=== PATIENT | female | born 1955 | race African-American/Black ===

== ENCOUNTER 2024-01-30 11:19 | Inpatient (IN) | payer MEDICARE, OTHER ==
[~2024-01-30] VITALS: Ht 162.6 cm; Wt 54.5 kg
[2024-01-30 11:22] VITALS: O2SAT 97
[2024-01-30 14:38] LABS: BASOPHILS % 0.6 % (0.0-2.0); DIFFERENTIAL COMMENT 0; EOSINOPHILS % 0.2 % (0.0-5.0); HEMATOCRIT. 34.2 % (36.0-48.0); LYMPHOCYTES % 22.1 % (20.0-50.0); MEAN CORPUSCULAR HGB CONC 32.1 g/dL (31.0-37.0); MEAN CORPUSCULAR VOLUME 102.9 fL (81.0-99.0); MEAN PLATELET VOLUME 8.1 fl (7.4-10.4); MONOCYTES % 8.9 % (2.0-8.0); NEUTROPHILS % 68.2 % (40.0-76.0); PLATELET 554 x1000/uL (130-400); RED BLOOD CELL COUNT 3.32 mill/uL (4.2-5.4); RED CELL DISTRIBUTION WIDTH 14.7 % (11.6-14.6); WHITE BLOOD COUNT 15.6 x1000/uL (4.5-11.0)
[2024-01-30 14:39] LABS: POTASSIUM 5.3 mEq/L (3.5-5.1)
[2024-01-30 14:41] LABS: CALCIUM 9.6 mg/dL (8.7-10.4)
[2024-01-30 14:45] LABS: CREATININE 2.2 mg/dL (0.6-1.0)
[2024-01-30] MEDS: PIPERACILLIN/TAZO 3.375G/50ML 50 ML IV ONE (16:13)
[2024-01-30] MEDS: SODIUM CHLORIDE 0.9% 1,000 ML IV ONE (16:13)
[2024-01-30] MEDS: SODIUM CHLORIDE 0.9% 1000ML BAG (SEPSIS BOLUS) IV ONE (16:14)
[2024-01-30 16:17] LABS: POTASSIUM 4.1 mEq/L (3.5-5.1)
[2024-01-30 18:51] LABS: CLARITY URINE TURBID (CLEAR); COLOR URINE DARK YELLOW (YELLOW); GLUCOSE URINE NEGATIVE (NEGATIVE); KETONES URINE TRACE (NEGATIVE); LEUKOCYTE ESTERASE URINE 2+ (NEGATIVE); NITRITE URINE NEGATIVE (NEGATIVE); OCCULT BLOOD URINE NEGATIVE (NEGATIVE); PROTEIN URINE 1+ (NEGATIVE); SPECIFIC GRAVITY URINE 1.024 (1.005-1.030)
[2024-01-30 19:11] LABS: BACTERIA URINE 3+; RBC URINE 0-2 /hpf (0-2); SQUAMOUS EPITHELIAL CELL URINE 2+ /lpf (RARE/1+)
[2024-01-30] MEDS ORDERED: CLONIDINE 0.1MG TABLET PO PRN (19:30)
[2024-01-30] MEDS ORDERED: IPRATROPIUM/ALBUTEROL 0.5-3(2.5)MG/3ML NEB HHN PRN (19:30)
[2024-01-30] MEDS ORDERED: PIPERACILLIN/TAZOBACTAM 3.375 G in DEXTROSE 5% WATER 50 ML IV SCH (19:30)
[2024-01-30] MEDS ORDERED: ACETAMINOPHEN 325MG TABLET PO PRN (19:30)
[2024-01-30 22:00] VITALS: BP 107/72; PULSE 115; RESP 20; TEMP 36.418
[2024-01-30] MEDS: SODIUM CHLORIDE 0.9% 1,000 ML IV SCH (22:20)
[2024-01-30] MEDS: PIPERACILLIN/TAZO 3.375G/50ML IV SCH (22:20)
[2024-01-30] MEDS: MORPHINE SULFATE 2 MG/ML INJ (NOT FOR IM USE) IV PRN (22:29)
[2024-01-31] MEDS: VANCOMYCIN 1.25GM PMX (XELLIA) 250 ML IV NR (02:28)
[2024-01-31 04:00] VITALS: BP_SYST 119; BP_SYST 96; BP_DIAS 58; BP_DIAS 67; PULSE 110; RESP 20; TEMP 36.9474; O2SAT 97
[2024-01-31 06:42] LABS: POTASSIUM 3.7 mEq/L (3.5-5.1)
[2024-01-31 06:44] LABS: CALCIUM 8.6 mg/dL (8.7-10.4)
[2024-01-31 06:49] LABS: BASOPHILS % 0.5 % (0.0-2.0); DIFFERENTIAL COMMENT 0; EOSINOPHILS % 1.4 % (0.0-5.0); HEMATOCRIT. 26.1 % (36.0-48.0); HEMOGLOBIN. 8.4 g/dL (12.0-16.0); LYMPHOCYTES % 26.3 % (20.0-50.0); MEAN CORPUSCULAR HEMOGLOBIN 33.1 pg (28.0-32.0); MEAN CORPUSCULAR HGB CONC 32.3 g/dL (31.0-37.0); MEAN CORPUSCULAR VOLUME 102.6 fL (81.0-99.0); MEAN PLATELET VOLUME 8.2 fl (7.4-10.4); MONOCYTES % 11.3 % (2.0-8.0); NEUTROPHILS % 60.5 % (40.0-76.0); PLATELET 417 x1000/uL (130-400); RED BLOOD CELL COUNT 2.54 mill/uL (4.2-5.4); WHITE BLOOD COUNT 10.8 x1000/uL (4.5-11.0)
[2024-01-31 07:00] LABS: CREATININE 1.5 mg/dL (0.6-1.0)
[2024-01-31 07:16] LABS: HEPATITIS B SURFACE ANTIGEN NEGATIVE (Negative)
[2024-01-31 07:37] LABS: HEPATITIS C AB NON REACTIVE (Neg) (Negative)
[2024-01-31 08:00] VITALS: BP 99/62; PULSE 120; RESP 18; TEMP 36.50292; O2SAT 95
[2024-01-31 12:00] VITALS: BP 109/78; PULSE 104; RESP 18; TEMP 36.78072; O2SAT 97
[2024-01-31 13:45] LABS: CREATININE URINE RANDOM 73.7 mg/dL
[2024-01-31 14:22] LABS: CREATINE KINASE 35 IU/L (34-145); PHOSPHORUS 4.4 mg/dL (2.5-4.9)
[2024-01-31 16:00] VITALS: BP 90/49; PULSE 93; RESP 18; TEMP 36.78072; O2SAT 99
[2024-01-31] MEDS: PNEUMOCOCCAL 23-VAL P-SAC VAC 0.5ML IM ONE (18:07)
[2024-01-31 20:00] VITALS: BP 103/64; PULSE 100; RESP 18; TEMP 36.72516; O2SAT 95
[2024-01-31] MEDS: VANCOMYCIN 500MG/100ML IV SCH (22:24)
[2024-01-31] MEDS: ONDANSETRON HCL 4MG/2ML INJ IV PRN (22:41)
[2024-02-01] VITALS (8 sets, daily range): BP systolic 90–157; BP diastolic 48–108; PULSE 100–141; RESP 17–25; TEMP 36.114–37.28076; O2SAT 94–100
[2024-02-01] MEDS ORDERED: LIDOCAINE HCL 1% 10 MG/ML 10ML VIAL ONE (07:05)
[2024-02-01] MEDS ORDERED: BUPIVACAINE HCL/PF 0.5% (5MG/ML) 10ML ONE (07:05)
[2024-02-01] MEDS ORDERED: POLYMYXIN B SULFATE 500000 UNITS/VIAL ONE (07:05)
[2024-02-01] MEDS ORDERED: FENTANYL CITRATE/PF 50MCG/ML 2ML VIAL ONE ×2 (07:29→08:58)
[2024-02-01] MEDS ORDERED: PROPOFOL 200MG/20ML VIAL IV ONE (07:29)
[2024-02-01] MEDS ORDERED: ROCURONIUM BROMIDE 10MG/ML VIAL 5ML IV ONE ×2 (07:29→08:43)
[2024-02-01 07:30] LABS: BASOPHILS % 0.6 % (0.0-2.0); DIFFERENTIAL COMMENT 0; EOSINOPHILS % 1.2 % (0.0-5.0); HEMATOCRIT. 24.6 % (36.0-48.0); HEMOGLOBIN. 7.9 g/dL (12.0-16.0); LYMPHOCYTES % 21.6 % (20.0-50.0); MEAN CORPUSCULAR HEMOGLOBIN 33.3 pg (28.0-32.0); MEAN PLATELET VOLUME 8.5 fl (7.4-10.4); MONOCYTES % 10.5 % (2.0-8.0); NEUTROPHILS % 66.1 % (40.0-76.0); PLATELET 374 x1000/uL (130-400); RED BLOOD CELL COUNT 2.37 mill/uL (4.2-5.4); RED CELL DISTRIBUTION WIDTH 13.9 % (11.6-14.6); WHITE BLOOD COUNT 8.3 x1000/uL (4.5-11.0)
[2024-02-01] MEDS ORDERED: MIDAZOLAM HCL 2 MG/2 ML VIAL ONE (07:30)
[2024-02-01 07:41] LABS: CHLORIDE 106 mEq/L (98-107); POTASSIUM 3.8 mEq/L (3.5-5.1); SODIUM 137 mEq/L (136-145)
[2024-02-01 07:42] LABS: CARBON DIOXIDE 23 mEq/L (21-32)
[2024-02-01 07:43] LABS: CALCIUM 9.1 mg/dL (8.7-10.4)
[2024-02-01 07:48] LABS: CREATININE 0.9 mg/dL (0.6-1.0); GLUCOSE 91 mg/dL (70-105); UREA NITROGEN BLOOD 17 mg/dL (9-23)
[2024-02-01] MEDS ORDERED: PHENYLEPHRINE HCL 10MG/ML 1ML IV ONE (08:00)
[2024-02-01] MEDS ORDERED: ESMOLOL HCL 10MG/ML 10ML VIAL IV ONE (08:11)
[2024-02-01] MEDS ORDERED: FENTANYL CITRATE/PF 50MCG/ML 2ML VIAL IV PRN (08:30)
[2024-02-01] MEDS ORDERED: ONDANSETRON HCL 4MG/2ML INJ IV PRN (08:30)
[2024-02-01] MEDS ORDERED: SUGAMMADEX SODIUM 200MG/2ML VIAL IV ONE (08:49)
[2024-02-01] MEDS ORDERED: ALBUMIN HUMAN 12.5G/250ML (5%) IV ONE (08:49)
[2024-02-01] MEDS: HYDROMORPHONE HCL/PF 1MG/ML INJ IV PRN (10:23)
[2024-02-01] MEDS ORDERED: ALLO300T2 PO (10:24)
[2024-02-01] MEDS ORDERED: COLC0.6C3 MT (10:24)
[2024-02-01] MEDS ORDERED: ASPI-1497 PO (10:24)
[2024-02-01] MEDS ORDERED: PANT40TA51 PO (10:24)
[2024-02-01] MEDS ORDERED: NIFE90TA60 PO (10:24)
[2024-02-01] MEDS ORDERED: DILT-26 PO (10:24)
[2024-02-01] MEDS ORDERED: METO-539 PO (10:24)
[2024-02-01] MEDS ORDERED: MELO-104 PO (10:24)
[2024-02-01] MEDS ORDERED: FERR325T6 PO (10:24)
[2024-02-01] MEDS ORDERED: TRAZ-251 PO (10:24)
[2024-02-01] MEDS ORDERED: POLY15DR31 OP (10:24)
[2024-02-01] MEDS ORDERED: NALOXONE HCL 0.4MG/ML VIAL IV PRN (10:30)
[2024-02-01] MEDS: ACETAMINOPHEN 1000MG/100ML 100 ML IV NR (10:49)
[2024-02-01] MEDS: VANCOMYCIN 750MG/150ML (BAXTER) IV SCH (12:25)
[2024-02-01] MEDS ORDERED: SODIUM CHLORIDE 0.9% 1000ML BAG (SEPSIS BOLUS) IV ONE (12:45)
[2024-02-01] MEDS: SODIUM CHLORIDE 0.9% 1,000 ML IV SCH (14:25)
[2024-02-01] MEDS: MAGNESIUM 2 G PREMIX 50 ML IV NR (14:26)
[2024-02-01] MEDS: HYDROCODONE/ACETAMINOPHEN 5/325MG TABLET PO PRN (15:37)
[2024-02-01 16:18] LABS: HEMATOCRIT 24.6 % (36.0-48.0); HEMOGLOBIN 7.8 g/dL (12.0-16.0); MEAN CORPUSCULAR HEMOGLOBIN 32.9 pg (28.0-32.0); MEAN CORPUSCULAR HGB CONC 31.7 g/dL (31.0-37.0); PLATELET 342 x1000/uL (130-400); RED BLOOD CELL COUNT 2.37 mill/uL (4.2-5.4); WHITE BLOOD COUNT 11.4 x1000/uL (4.5-11.0)
[2024-02-01] MEDS: KETOROLAC 15MG/ML VIAL IV SCH (17:04)
[2024-02-01 17:32] LABS: T4 FREE 1.56 ng/dL (0.89-1.76)
[2024-02-01 17:33] LABS: THYROID STIMULATING HORMONE 0.77 uIU/mL (0.55-4.78)
[2024-02-01 18:14] LABS: TROPONIN I HIGH SENSITIVITY 17 ng/L (3.0-34)
[2024-02-01] MEDS: METOPROLOL TARTRATE 50MG TABLET PO SCH (20:25)
[2024-02-01] MEDS: HYDROCODONE/ACETAMINOPHEN 10/325MG TABLET PO PRN (20:26)
[2024-02-02] VITALS (9 sets, daily range): BP systolic 115–151; BP diastolic 84–99; PULSE 87–128; RESP 14–26; TEMP 36.22512–37.00296; O2SAT 86–99
[2024-02-02] MEDS: HYDROCODONE/ACETAMINOPHEN 5/325MG TABLET PO PRN (04:45)
[2024-02-02] MEDS: DILTIAZEM HCL 120MG CAPSULE ER 24HR PO SCH (08:13)
[2024-02-02] MEDS: ENOXAPARIN 40MG/0.4ML SYR SUBCUT SCH (08:14)
[2024-02-02 08:56] LABS: HEMATOCRIT. 25.6 % (36.0-48.0); HEMOGLOBIN. 8.2 g/dL (12.0-16.0); MEAN CORPUSCULAR HEMOGLOBIN 33.2 pg (28.0-32.0); MEAN CORPUSCULAR HGB CONC 32.1 g/dL (31.0-37.0); MEAN CORPUSCULAR VOLUME 103.6 fL (81.0-99.0); MEAN PLATELET VOLUME 8.3 fl (7.4-10.4); PLATELET 340 x1000/uL (130-400); RED BLOOD CELL COUNT 2.47 mill/uL (4.2-5.4); WHITE BLOOD COUNT 9.6 x1000/uL (4.5-11.0)
[2024-02-02 08:57] LABS: DIFFERENTIAL COMMENT 1
[2024-02-02 09:05] LABS: CHLORIDE 107 mEq/L (98-107); POTASSIUM 3.9 mEq/L (3.5-5.1); SODIUM 137 mEq/L (136-145)
[2024-02-02 09:06] LABS: CALCIUM 9.6 mg/dL (8.7-10.4); CARBON DIOXIDE 28 mEq/L (21-32)
[2024-02-02 09:11] LABS: CREATININE 0.9 mg/dL (0.6-1.0); GLUCOSE 98 mg/dL (70-105); UREA NITROGEN BLOOD 10 mg/dL (9-23)
[2024-02-02 11:38] LABS: PLATELET ESTIMATE NORMAL
[2024-02-02] MEDS: METOCLOPRAMIDE HCL 10MG/2ML VIAL IV PRN (15:19)
[2024-02-03] VITALS (12 sets, daily range): BP systolic 97–127; BP diastolic 68–89; PULSE 90–120; RESP 14–20; TEMP 36.28068–37.55856; O2SAT 91–100
[2024-02-03] MEDS: DIPHENHYDRAMINE 50MG/ML VIAL IV PRN (00:14)
[2024-02-03 04:10] LABS: CANCER ANTIGEN 125 28.6 U/mL (0.0-38.1); CARCINOEMBRYONIC AG - SEND OUT 2.2 ng/mL (0.0-4.7)
[2024-02-03 17:51] LABS: BASOPHILS % 0.6 % (0.0-2.0); DIFFERENTIAL COMMENT 0; EOSINOPHILS % 3.9 % (0.0-5.0); HEMATOCRIT. 25.5 % (36.0-48.0); LYMPHOCYTES % 30.3 % (20.0-50.0); MEAN CORPUSCULAR HEMOGLOBIN 33.1 pg (28.0-32.0); MEAN CORPUSCULAR HGB CONC 31.6 g/dL (31.0-37.0); MEAN CORPUSCULAR VOLUME 104.8 fL (81.0-99.0); MEAN PLATELET VOLUME 8.7 fl (7.4-10.4); MONOCYTES % 13.3 % (2.0-8.0); NEUTROPHILS % 51.9 % (40.0-76.0); PLATELET 333 x1000/uL (130-400); RED BLOOD CELL COUNT 2.43 mill/uL (4.2-5.4); RED CELL DISTRIBUTION WIDTH 14.6 % (11.6-14.6); WHITE BLOOD COUNT 6.5 x1000/uL (4.5-11.0)
[2024-02-03 18:02] LABS: CHLORIDE 111 mEq/L (98-107); POTASSIUM 3.9 mEq/L (3.5-5.1); SODIUM 138 mEq/L (136-145)
[2024-02-03 18:03] LABS: CARBON DIOXIDE 23 mEq/L (21-32)
[2024-02-03 18:08] LABS: CREATININE 0.9 mg/dL (0.6-1.0); GLUCOSE 93 mg/dL (70-105); UREA NITROGEN BLOOD 13 mg/dL (9-23)
[2024-02-03] MEDS: HEMORRHOIDAL SUPP PR SCH (22:17)
[2024-02-04] VITALS (12 sets, daily range): BP systolic 104–134; BP diastolic 71–94; PULSE 93–141; RESP 14–27; TEMP 36.83628–37.44744; O2SAT 85–98
[2024-02-04 06:21] LABS: PROTHROMBIN TIME 10.8 sec (9.6-11.0)
[2024-02-04 06:25] LABS: CARBON DIOXIDE 25 mEq/L (21-32); CHLORIDE 108 mEq/L (98-107); POTASSIUM 3.5 mEq/L (3.5-5.1); SODIUM 140 mEq/L (136-145)
[2024-02-04 06:26] LABS: CALCIUM 9.8 mg/dL (8.7-10.4)
[2024-02-04 06:30] LABS: CREATININE 0.8 mg/dL (0.6-1.0); IRON 21 ug/dL (50-170)
[2024-02-04 06:31] LABS: ALANINE AMINOTRANSFERASE 10 IU/L (10-49); GLUCOSE 94 mg/dL (70-105); TOTAL IRON BINDING CAPACITY 213 ug/dl (250-425); UREA NITROGEN BLOOD 14 mg/dL (9-23)
[2024-02-04 06:32] LABS: ASPARTATE AMINOTRANSFERASE 10 IU/L (<34)
[2024-02-04 06:33] LABS: BILIRUBIN DIRECT 0.1 mg/dL (<=3.0); BILIRUBIN TOTAL 0.3 mg/dL (0.1-1.0); PROTEIN TOTAL 6.3 g/dL (6.0-8.3)
[2024-02-04 06:35] LABS: FERRITIN 359 ng/mL (10-291)
[2024-02-04 06:39] LABS: BASOPHILS % 0.3 % (0.0-2.0); DIFFERENTIAL COMMENT 0; FOLIC ACID (FOLATE) SERUM 19.27 ng/mL (>5.38); HEMATOCRIT. 25.9 % (36.0-48.0); HEMOGLOBIN. 8.6 g/dL (12.0-16.0); LYMPHOCYTES % 21.4 % (20.0-50.0); MEAN CORPUSCULAR HEMOGLOBIN 33.8 pg (28.0-32.0); MEAN CORPUSCULAR HGB CONC 33.1 g/dL (31.0-37.0); MEAN CORPUSCULAR VOLUME 101.9 fL (81.0-99.0); MEAN PLATELET VOLUME 8.6 fl (7.4-10.4); MONOCYTES % 10.7 % (2.0-8.0); NEUTROPHILS % 65.6 % (40.0-76.0); PLATELET 337 x1000/uL (130-400); RED BLOOD CELL COUNT 2.55 mill/uL (4.2-5.4); RED CELL DISTRIBUTION WIDTH 13.9 % (11.6-14.6); VITAMIN B12 SERUM 474 pg/mL (211-911); WHITE BLOOD COUNT 9.2 x1000/uL (4.5-11.0)
[2024-02-04] MEDS: POTASSIUM CHLORIDE 20MEQ/PACKET PO NR (12:40)
[2024-02-05] VITALS (7 sets, daily range): BP systolic 84–124; BP diastolic 58–84; PULSE 88–109; RESP 16–17; TEMP 36.114–37.05852; O2SAT 93–97
[2024-02-05 06:08] LABS: BASOPHILS % 0.5 % (0.0-2.0); DIFFERENTIAL COMMENT 0; EOSINOPHILS % 4.6 % (0.0-5.0); HEMATOCRIT. 22.5 % (36.0-48.0); HEMOGLOBIN. 7.2 g/dL (12.0-16.0); LYMPHOCYTES % 34.4 % (20.0-50.0); MEAN CORPUSCULAR HEMOGLOBIN 32.8 pg (28.0-32.0); MEAN CORPUSCULAR VOLUME 102.6 fL (81.0-99.0); MEAN PLATELET VOLUME 8.5 fl (7.4-10.4); MONOCYTES % 13.6 % (2.0-8.0); NEUTROPHILS % 46.9 % (40.0-76.0); PLATELET 344 x1000/uL (130-400); RED BLOOD CELL COUNT 2.19 mill/uL (4.2-5.4); RED CELL DISTRIBUTION WIDTH 13.9 % (11.6-14.6); WHITE BLOOD COUNT 7.3 x1000/uL (4.5-11.0)
[2024-02-05 06:15] LABS: CARBON DIOXIDE 23 mEq/L (21-32); CHLORIDE 112 mEq/L (98-107); SODIUM 141 mEq/L (136-145)
[2024-02-05 06:16] LABS: CALCIUM 8.9 mg/dL (8.7-10.4)
[2024-02-05 06:21] LABS: CREATININE 0.6 mg/dL (0.6-1.0); GLUCOSE 84 mg/dL (70-105); UREA NITROGEN BLOOD 9 mg/dL (9-23)
[2024-02-05 17:40] LABS: HEMATOCRIT 23.1 % (36.0-48.0); HEMOGLOBIN 7.4 g/dL (12.0-16.0)
[2024-02-06] VITALS (9 sets, daily range): BP systolic 98–147; BP diastolic 62–95; PULSE 91–127; RESP 15–30; TEMP 36.16956–36.78072; O2SAT 93–99
[2024-02-06 06:54] LABS: BASOPHILS % 0.8 % (0.0-2.0); DIFFERENTIAL COMMENT 0; EOSINOPHILS % 2.4 % (0.0-5.0); HEMATOCRIT. 24.8 % (36.0-48.0); LYMPHOCYTES % 40.4 % (20.0-50.0); MEAN CORPUSCULAR HEMOGLOBIN 33.3 pg (28.0-32.0); MEAN CORPUSCULAR HGB CONC 32.4 g/dL (31.0-37.0); MEAN CORPUSCULAR VOLUME 102.9 fL (81.0-99.0); MEAN PLATELET VOLUME 8.4 fl (7.4-10.4); MONOCYTES % 7.5 % (2.0-8.0); NEUTROPHILS % 48.9 % (40.0-76.0); PLATELET 353 x1000/uL (130-400); RED BLOOD CELL COUNT 2.41 mill/uL (4.2-5.4); RED CELL DISTRIBUTION WIDTH 14.7 % (11.6-14.6); WHITE BLOOD COUNT 8.8 x1000/uL (4.5-11.0)
[2024-02-06 12:55] LABS: PARTIAL THROMBOPLASTIN TIME 24.6 sec (23.4-31.0); PROTHROMBIN TIME 10.9 sec (9.6-11.0)
[2024-02-06 13:00] LABS: PREALBUMIN 10.3 mg/dl (10.0-40.0)
[2024-02-06] MEDS: HYDROCODONE/ACETAMINOPHEN 5/325MG TABLET PO PRN (22:21)
[2024-02-07] VITALS (10 sets, daily range): BP systolic 98–153; BP diastolic 66–107; PULSE 86–110; RESP 13–20; TEMP 36.16956–36.6696; O2SAT 94–97
[2024-02-07 08:27] LABS: BASOPHILS % 0.7 % (0.0-2.0); DIFFERENTIAL COMMENT 0; HEMATOCRIT. 22.5 % (36.0-48.0); HEMOGLOBIN. 7.2 g/dL (12.0-16.0); LYMPHOCYTES % 32.2 % (20.0-50.0); MEAN CORPUSCULAR HGB CONC 32.2 g/dL (31.0-37.0); MEAN CORPUSCULAR VOLUME 102.5 fL (81.0-99.0); MEAN PLATELET VOLUME 8.6 fl (7.4-10.4); MONOCYTES % 12.6 % (2.0-8.0); NEUTROPHILS % 51.5 % (40.0-76.0); PLATELET 379 x1000/uL (130-400); RED CELL DISTRIBUTION WIDTH 14.1 % (11.6-14.6); WHITE BLOOD COUNT 9.3 x1000/uL (4.5-11.0)
[2024-02-07] MEDS ORDERED: NALOXONE HCL 0.4MG/ML VIAL IV PRN (09:15)
[2024-02-07] MEDS: AMLODIPINE 5MG TABLET PO SCH (09:30)
[2024-02-07] MEDS: METOPROLOL TARTRATE 100MG TABLET PO SCH (10:47)
[2024-02-07] MEDS: HYDROCODONE/ACETAMINOPHEN 10/325MG TABLET PO PRN (12:10)
[2024-02-08] VITALS (8 sets, daily range): BP systolic 99–153; BP diastolic 68–98; PULSE 92–117; RESP 13–27; TEMP 36.3918–37.11408; O2SAT 92–98
[2024-02-08 08:20] LABS: DIFFERENTIAL COMMENT 0; EOSINOPHILS % 3.5 % (0.0-5.0); HEMATOCRIT. 22.8 % (36.0-48.0); HEMOGLOBIN. 7.6 g/dL (12.0-16.0); MEAN CORPUSCULAR HEMOGLOBIN 33.9 pg (28.0-32.0); MEAN CORPUSCULAR HGB CONC 33.5 g/dL (31.0-37.0); MEAN CORPUSCULAR VOLUME 101.2 fL (81.0-99.0); MEAN PLATELET VOLUME 8.1 fl (7.4-10.4); MONOCYTES % 8.4 % (2.0-8.0); NEUTROPHILS % 51.1 % (40.0-76.0); PLATELET 406 x1000/uL (130-400); RED BLOOD CELL COUNT 2.25 mill/uL (4.2-5.4); RED CELL DISTRIBUTION WIDTH 14.5 % (11.6-14.6); WHITE BLOOD COUNT 8.9 x1000/uL (4.5-11.0)
[2024-02-08] MEDS: FERROUS SULFATE 325MG TABLET PO SCH (13:05)
[2024-02-09] VITALS: BP 116/71; PULSE 90; RESP 31; TEMP 36.78072; O2SAT 95
[2024-02-09 02:00] VITALS: BP 112/72; PULSE 86; RESP 15; O2SAT 96
[2024-02-09 04:00] VITALS: BP 151/105; PULSE 100; RESP 17; TEMP 36.55848; O2SAT 95
[2024-02-09 06:00] VITALS: BP 131/88; PULSE 94; RESP 17; O2SAT 93
[2024-02-09 06:33] LABS: CHLORIDE 106 mEq/L (98-107); POTASSIUM 3.8 mEq/L (3.5-5.1); SODIUM 139 mEq/L (136-145)
[2024-02-09 06:34] LABS: CARBON DIOXIDE 27 mEq/L (21-32)
[2024-02-09 06:35] LABS: CALCIUM 8.8 mg/dL (8.7-10.4)
[2024-02-09 06:39] LABS: CREATININE 0.7 mg/dL (0.6-1.0); GLUCOSE 86 mg/dL (70-105)
[2024-02-09 06:40] LABS: UREA NITROGEN BLOOD 10 mg/dL (9-23)
[2024-02-09 08:00] VITALS: BP 138/85; PULSE 92; RESP 21; TEMP 36.50292; O2SAT 95
[2024-02-09 08:12] LABS: BASOPHILS % 0.9 % (0.0-2.0); DIFFERENTIAL COMMENT 0; EOSINOPHILS % 3.8 % (0.0-5.0); HEMATOCRIT. 22.8 % (36.0-48.0); HEMOGLOBIN. 7.2 g/dL (12.0-16.0); LYMPHOCYTES % 40.6 % (20.0-50.0); MEAN CORPUSCULAR HEMOGLOBIN 32.4 pg (28.0-32.0); MEAN CORPUSCULAR HGB CONC 31.7 g/dL (31.0-37.0); MEAN CORPUSCULAR VOLUME 102.2 fL (81.0-99.0); MEAN PLATELET VOLUME 8.4 fl (7.4-10.4); MONOCYTES % 10.6 % (2.0-8.0); NEUTROPHILS % 44.1 % (40.0-76.0); PLATELET 442 x1000/uL (130-400); RED BLOOD CELL COUNT 2.23 mill/uL (4.2-5.4); RED CELL DISTRIBUTION WIDTH 14.9 % (11.6-14.6); WHITE BLOOD COUNT 7.8 x1000/uL (4.5-11.0)
[2024-02-09] MEDS: LIDOCAINE HCL 1% 10 MG/ML 10ML VIAL ONE (10:26)
[2024-02-09 11:52] VITALS: BP 116/67; PULSE 92; RESP 17; TEMP 36.6696; TEMP 36.66960; O2SAT 96
[2024-02-09] MEDS ORDERED: AMLO5TAB88 PO (12:59)
[2024-02-09] MEDS ORDERED: METO100T16 PO (12:59)
[2024-02-09] MEDS ORDERED: FERR-63 PO (12:59)
== END 2024-02-09 18:23 | disposition home health service (06) | DRG 228 ==
LOC: ER 11:19 → 5WST 17:54 → EDBEDREQ 18:01 → EDBEDREQTM 18:01 → 7EST 20:50 → 5EST 02-01 18:18
PROVIDERS: ADMIT Internal Medicine; ATTEND Internal Medicine
PROC: 0YU60JZ Supplement Left Inguinal Region with Synthetic Substitute, Open Approach (ICD-10-PCS; principal; 2024-02-01)
PROC: 02HV33Z Insertion of Infusion Device into Superior Vena Cava, Percutaneous Approach (ICD-10-PCS; 2024-02-03)
PROC: B548ZZA Ultrasonography of Superior Vena Cava, Guidance (ICD-10-PCS; 2024-02-03)
DX: K40.30 Unilateral inguinal hernia, with obstruction, without gangrene, not specified as recurrent (principal); N17.9 Acute kidney failure, unspecified; K56.609 Unspecified intestinal obstruction, unspecified as to partial versus complete obstruction; D68.59 Other primary thrombophilia; K56.7 Ileus, unspecified; D64.9 Anemia, unspecified; D49.1 Neoplasm of unspecified behavior of respiratory system; D25.9 Leiomyoma of uterus, unspecified; I10 Essential (primary) hypertension; E87.5 Hyperkalemia; E78.5 Hyperlipidemia, unspecified; J45.909 Unspecified asthma, uncomplicated; F17.200 Nicotine dependence, unspecified, uncomplicated; K57.30 Diverticulosis of large intestine without perforation or abscess without bleeding; K59.00 Constipation, unspecified; K64.4 Residual hemorrhoidal skin tags; Z80.3 Family history of malignant neoplasm of breast; Z80.6 Family history of leukemia; N39.0 Urinary tract infection, site not specified; K92.1 Melena; K52.9 Noninfective gastroenteritis and colitis, unspecified
CPT/HCPCS: 36415; 36573; 71045; 71275; 74176; 80048; 80076; 80202; 81003; 82378; 82550; 82570; 82607; 82728; 82746; 83540; 83550; 83605; 83735; 84100; 84132; 84134; 84145; 84300; 84439; 84443; 84478; 84481; 84484; 85014; 85018; 85025; 85027; 85044; 85379; 86301; 86304; 86705; 86850; 86900; 87015; 87045; 87340; 87427; 87449; 88108; 88302; 88312; 89055; 90732; 93005; 93306; 93970; 97162; 99291; C1725; C1781; C1893; J1170; J1200; J1885; J2250; J2270; J2405; J2543; J2704; J2765; J3010; J3370; J3475; J3490; J7030; P9041; J0131